=== PATIENT | female | born 1955 | race Caucasian/White ===

== ENCOUNTER 2017-02-26 15:31 | Emergency (ER) | payer OTHER ==
[~2017-02-26] VITALS: Ht 165.1 cm; Wt 77.3 kg
[2017-02-26 15:35] VITALS: BP 109/76; PULSE 86; RESP 20; O2SAT 99
--- NOTE | 2017-02-26 16:53 | ED.REPORT ---
HPI-Extremity Problem Lower Date of Service Feb 26, 2017 ED Provider: History of Present Illness: twisted knee today around 2 pm. also near fall off ladder 3 weeks ago. No fall to the ground, right knee pain and swelling. primary care is [facility]. Nursing Notes Stated Complaint: TWISTED KNEE Chief Complaint: Extremity Trauma Nursing Notes Reviewed: Yes Allergies: Coded Allergies: Quinolones (Verified Allergy, Mild, 02/26/17) Sulfa (Sulfonamide Antibiotics) (Verified Allergy, Mild, 02/26/17) doxycycline (Verified Allergy, Mild, 02/26/17) nitrofurantoin (Verified Allergy, Mild, 02/26/17) General Time Seen by MD: 16:48 Chief Complaint Knee injury right Hx Obtained From: Patient Onset Occurred: Just prior to arrival Caused by: Accidental Past Medical History Past Medical History Denies: Asthma, Diabetes mellitus Past Surgical History Reports: Hysterectomy Smoking History Never Smoker Social History Alcohol Use: Denies alcohol use Drug Use: Denies drug use Other Social History: Occupation 1 story house, 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 Review of Systems Basic Review of Systems Eyes: Vision NL, No discharge GI: No abdominal pain, No anorexia, No nausea, No vomiting Endocrine: No weight loss Psychiatric: Normal thought content Physical Exam Initial Vital Signs Vital Signs (First) Date Time Temp Pulse Resp B/P Pulse Ox O2 Delivery O2 Flow Rate FiO2 02/26/17 15:35 36.2 86 20 109/76 99 Room Air Initial VS: Reviewed, Vital signs normal General/Constitutional: Well-developed, Well-nourished Head / Eyes: Atraumatic, Normocephalic, PERRL ENT: Mucous membranes moist, Conjunctiva normal, No scleral icterus Neck: Supple, Non-tender, Full range of motion Respiratory: Breath sounds normal, Clear to auscultation, No respiratory distress Cardiovascular: Regular rate & rhythm, Heart sounds normal, Intact distal pulses Abdomen / GI: Soft, Non-tender, No guarding, No rebound, No distention Back: No CVA tenderness Lymphatic: No lymphadenopathy Upper Extremities: Vascular intact, Neuro intact, No swelling, No tenderness Skin: Warm, Dry, No cyanosis Neurologic: Alert, Oriented, Nonfocal Psychiatric: Mood/affect normal, Behavior normal, Normal thought content pain is mainly in the posterior knee. Moderate swellin posterior knee and mild swelling in lower leg. No erthyma or sign of infection. Limited range of motion because of swelling Ankle / Foot: Atraumatic, Inspection NL, Full range of motion, No swelling, No erythema General/Constitutional: Awake, Alert, No acute distress, Well appearing, Well developed, Well hydrated, Well nourished, Cooperative, Not toxic appearing Respiratory / Chest: Atraumatic, Breath sounds NL, Breath sounds = bilat, No respiratory distress Cardiovascular: Heart rate NL, Regular rhythm, Heart sounds NL, No gallop Interpretation & Diagnostics Interpretation & Diagnostics: ROCEDURE: US VEINOUS LEG DUPLEX UNILATERAL, RIGHT INDICATIONS: leg swelling and behind the knee swelling TECHNIQUE: Real-time imaging, as well as color and pulse Doppler interrogation, were performed of the lower extremity deep veins from the inguinal ligament to the popliteal fossa. COMPARISON: None. FINDINGS: The deep veins are normally compressible, and free of intraluminal thrombus. Color and pulse Doppler demonstrate normal phasic intraluminal flow. There is normal augmentation response to distal compression maneuver. There is a 45 mm x 7 mm by 8 mm focus of heteroechogenicity in the popliteal fossa. IMPRESSION: 1. No deep venous thrombosis. 2. Suspected ruptured Mathis's cyst. X-Ray Interpretation Xray Interpretation: PROCEDURE: X-RAY RIGHT KNEE, THREE VIEWS ([id number]) INDICATIONS: twisted today and also 3 weeks ago TECHNIQUE: 3 views of the knee were acquired. COMPARISON: None. FINDINGS: Bones: There is a nondisplaced fracture along the peripheral aspect of the lateral patella. No suspicious bony lesions. Soft tissues: Mild joint effusion. No suspicious soft tissue calcifications. IMPRESSION: Mild effusion with a nondisplaced fracture along the peripheral aspect of the lateral patella. Dictated by: Nasrin Aleman M.D. on 02/26/2017 at 17:55 Approved by: Nasrin Aleman M.D. on 02/26/2017 at 17:58 Re-Eval/Medical Decision Med Decision/Clinical Course 62 year old female presents to the ER for evualation of right knee pain which became worse today anfter a twisting injury. She initially missed a step on a ladder about 3 weeks ago. She reports the knee was never 100% after that but maybe 85%. Did not fall to the ground. No sign of any blood clot. X-ray does show a small avulsion injury. Exam indicates a mathis's cyst Discharge & Departure Impression: Primary Impression: Patella fracture Encounter type: initial encounter Fracture type: closed Fracture alignment : nondisplaced Laterality: right Additional Impression: Mathis's cyst of knee Disposition: Home Patient Instructions: Bakers Cyst (ED), Patellar Fracture (ED) Additional Instructions: The x-ray shows a small patella fracture. Please wear the knee immobilizer till you are seen by Dr. Bright. Please call her office for a follow up appointment. The physical exam indicates a likely Mathis's cyst. Continue with ice to the back of the leg for 3 to 4 days. Wear the splint 05/03. You can purchase a cast/ splint protector at any drug store. Use ibuprofen 800 mg 3 times a day for 7 days. Can use tramadol 1 up to 3 times a day as needed for severe unrelenting pain. Referrals: Jodie Montaño MD (PCP) Micheal Bright MD EDSupervising Provider for APC: Michael Pearson DO copies to: Micheal Bright MD; Jodie Montaño MD, Sue ARNP Feb 26, 2017 16:53
--- NOTE | 2017-02-26 18:00 | DRSVH ---
PROCEDURE: X-RAY RIGHT KNEE, THREE VIEWS ([id number]) INDICATIONS: twisted today and also 3 weeks ago TECHNIQUE: 3 views of the knee were acquired. COMPARISON: None. FINDINGS: Bones: There is a nondisplaced fracture along the peripheral aspect of the lateral patella. No suspic ious bony lesions. Soft tissues: Mild joint effusion. No suspicious soft tissue calcifications. IMPRESSION: Mild effusion with a nondisplaced fracture along the peripheral aspect of the lateral pat renato. Dictated by: Nasrin Alemna M.D. on 02/26/2017 at 17:55 Approved by: Nasrin Aleman M.D. on 02/26/2017 at 17:58
--- NOTE | 2017-02-26 18:37 | DRSVH ---
PROCEDURE: US VEINOUS LEG DUPLEX UNILATERAL, RIGHT INDICATIONS: leg swelling and behind the knee swelling TECHNIQUE: Real-time imaging, as well as color and pulse Doppler interrogation, were performed of the lower extr emity deep veins from the inguinal ligament to the popliteal fossa. COMPARISON: None. FINDINGS: The deep veins are normally compressible, and free of intraluminal thrombus. Color and pu lse Doppler demonstrate normal phasic intraluminal flow. There is normal augmentation response to di stal compression maneuver. There is a 45 mm x 7 mm by 8 mm focus of heteroechogenicity in the poplit eal fossa. IMPRESSION: 1. No deep venous thrombosis. 2. Suspected ruptured Mathis's cyst. Dictated by: Nasrin Aleman M.D. on 02/26/2017 at 18:34 Approved by: Nasrin Aleman M.D. on 02/26/2017 at 18:35
== END 2017-02-26 19:00 | disposition home or self-care (01) ==
LOC: SED 15:31
DX: S82.091A Other fracture of right patella, initial encounter for closed fracture (principal); M71.21 Synovial cyst of popliteal space [Baker], right knee; X50.0XXA Overexertion from strenuous movement or load, initial encounter; Y92.512 Supermarket, store or market as the place of occurrence of the external cause; Y93.89 Activity, other specified; Y99.8 Other external cause status; Z88.1 Allergy status to other antibiotic agents; Z88.2 Allergy status to sulfonamides; Z90.710 Acquired absence of both cervix and uterus